=== PATIENT | male | born 1955 | race Caucasian/White ===

== ENCOUNTER 2017-07-10 17:54 | Emergency (ER) | payer BC ==
[~2017-07-10] VITALS: Ht 175.3 cm; Wt 77.4 kg
[2017-07-10] MEDS ORDERED: TRAMADOL HYDROC50 MG PO (18:40)
[2017-07-10] MEDS ORDERED: KEFLEX500 M1 PO (18:40)
[2017-07-10 19:36] VITALS: BP 149/84
== END 2017-07-10 19:36 | disposition home or self-care (01) | DRG 605 ==
LOC: ED 17:54
PROC: 0HQFXZZ Repair Right Hand Skin, External Approach (ICD-10-PCS; principal; 2017-07-10)
DX: S61.316A Laceration without foreign body of right little finger with damage to nail, initial encounter (principal); W27.0XXA Contact with workbench tool, initial encounter; Y93.89 Activity, other specified; Y92.007 Garden or yard of unspecified non-institutional (private) residence as the place of occurrence of the external cause

== ENCOUNTER 2017-07-19 14:43 | Emergency (ER) | payer BC ==
[~2017-07-19] VITALS: Ht 175.3 cm; Wt 77.6 kg
[~2017-07-19 14:43] MED LIST: KEFLEX500 M1 PO; TRAMADOL HYDROC50 MG PO
[2017-07-19] MEDS ORDERED: BACTRIM DS1 TAB PO (15:55)
[2017-07-19 15:58] VITALS: BP 133/97
== END 2017-07-19 16:05 | disposition home or self-care (01) | DRG 950 ==
LOC: ED 14:43
DX: S61.316D Laceration without foreign body of right little finger with damage to nail, subsequent encounter (principal)

== ENCOUNTER 2021-05-10 16:13 | Emergency (ER) | payer BC ==
[~2021-05-10] VITALS: Ht 175.3 cm; Wt 81.8 kg
[~2021-05-10 16:13] MED LIST changes: +BACTRIM DS1 TAB PO
[2021-05-10] MEDS ORDERED: KEFLEX500 MG PO ×2 (18:32→19:13)
[2021-05-10 19:12] VITALS: BP 167/97
== END 2021-05-10 19:12 | disposition home or self-care (01) | DRG 605 ==
LOC: ED 16:13
PROC: 0HQGXZZ Repair Left Hand Skin, External Approach (ICD-10-PCS; principal; 2021-05-10)
DX: S61.311A Laceration without foreign body of left index finger with damage to nail, initial encounter (principal); W31.89XA Contact with other specified machinery, initial encounter; Y93.H9 Activity, other involving exterior property and land maintenance, building and construction; Y92.009 Unspecified place in unspecified non-institutional (private) residence as the place of occurrence of the external cause

== ENCOUNTER 2022-01-21 13:29 | Emergency (ER) | payer MEDICARE ==
[~2022-01-21] VITALS: Ht 175.3 cm; Wt 82.0 kg
[~2022-01-21 13:29] MED LIST changes: +KEFLEX500 MG PO
[2022-01-21] MEDS ORDERED: HYDROCO/APAP1 TA9 PO (14:18)
[2022-01-21] MEDS ORDERED: KEFLEX500 MG PO (14:18)
[2022-01-21 14:33] VITALS: BP 155/93
== END 2022-01-21 14:33 | disposition home or self-care (01) ==
LOC: ED 13:29
PROC: 0HQEXZZ Repair Left Lower Arm Skin, External Approach (ICD-10-PCS; principal; 2022-01-21)
DX: S51.812A Laceration without foreign body of left forearm, initial encounter (principal); W20.8XXA Other cause of strike by thrown, projected or falling object, initial encounter; Y92.007 Garden or yard of unspecified non-institutional (private) residence as the place of occurrence of the external cause